=== PATIENT | male | born 1940 | race Caucasian/White ===

== ENCOUNTER 2018-03-15 10:49 | Day surgery (SDC) | payer OTHER, BC ==
[2018-03-14 14:14] VITALS: BMI 28.1
[2018-03-15] MEDS ORDERED: ONDANSETRON 4 MG/2 ML VIAL IVPUSH PRN (11:14)
[2018-03-15] MEDS ORDERED: oxyCODONE HCL 5 MG TABLET PO PRN ×2 (11:14)
[2018-03-15] MEDS ORDERED: LACTATED RINGERS SOLUTION 1,000 ML IV SCH (11:15)
[2018-03-15] MEDS ORDERED: MIDAZOLAM HCL 2 MG/2 ML SINGLE DOSE VIAL ONE (11:46)
--- NOTE | 2018-03-15 11:55 | OP ---
Operative Note - Note: Operative Date: 03/15/18 Pre-Operative Diagnosis: Left renal calculi Operation: Left lithotripsy Post-Operative Diagnosis: Same as Pre-op Surgeon: Manny Mina MD. Anesthesia: MAC Operative Report Dictated: Yes
[2018-03-15] MEDS ORDERED: DEXAMETHASONE SOD PHOSPHATE 4 MG/1 ML VIAL ONE (11:58)
[2018-03-15] MEDS ORDERED: ELECTROLYTE-148 SOLN 1,000 ML IV SCH (12:00)
--- NOTE | 2018-03-15 13:04 | OP ---
DATE OF OPERATION: 03/15/2018 PREOPERATIVE DIAGNOSIS: Left renal calculi. PROCEDURE: Left lithotripsy. POSTOPERATIVE DIAGNOSIS: Left renal calculi. HISTORY: This is a very pleasant 77-year-old gentleman with a history of bilateral renal calculi. Today he is being treated for left renal calculi. Preoperative imaging revealed a 6-mm, 5-mm, and 2.5-mm stones. After discussing treatment options, the patient elected to undergo the above-stated procedure. Risks, benefits of treatment, and alternative treatment discussed in detail. All questions were answered. BRIEF OPERATIVE NOTE: The patient was brought into the operating room and placed in supine position. Once the stone was visualized, sedation was given. IV Levaquin was also given. The stone appeared to fragment after approximately 2500 shocks. The radiographic findings were consistent with small fragments. At this time, the patient was brought to the recovery room in stable and satisfactory condition. LORETO JOY M.D. [id number]
[2018-03-15 14:22] VITALS: BP 130/79; PULSE 59; TEMP 97.5
== END 2018-03-15 14:15 | disposition home or self-care (01) ==
LOC: JASU-SURG 10:49
PROVIDERS: ATTEND Urology
PROC: 0TF4XZZ Fragmentation in Left Kidney Pelvis, External Approach (ICD-10-PCS; principal; 2018-03-15 12:00)
DX: N20.0 Calculus of kidney (principal)
CPT/HCPCS: 82962